=== PATIENT | female | born 1955 | race Caucasian/White ===

== ENCOUNTER 2018-07-01 20:30 | Emergency (ER) | payer MEDICARE, MEDICAID, SELFPAY ==
[2018-07-01 20:31] VITALS: BP 130/71; PULSE 103; RESP 15; TEMP 36.5; O2SAT 96; BMI 37.0
[2018-07-01 21:21] LABS: Mucous, Urine 0 SEEN /hpf (<or=2+); Red Blood Cells-Urine 0 SEEN /hpf (0-5)
[2018-07-01 21:29] LABS: Color, Urine Yellow (Yellow); Glucose, Dipstick Normal (Normal); Ketone-Dipstick Negative (Negative); Leukocyte Esterase-Dipstick 500 /ul (Negative); Nitrite-Dipstick Positive (Negative); Occult Blood-Urine 25 /ul (Negative); Protein-Dipstick 30 mg/dl (Negative); Specific Gravity, Urine 1.025 (1.002-1.030); Urine Bilirubin Dipstick Negative (Negative); Urine Clarity Sl. Cloudy (Clear); Urine Urobilinogen Normal (Normal)
--- NOTE | 2018-07-01 21:43 | CT_ITS ---
STUDY: CT ABDOMEN AND PELVIS WITHOUT CONTRAST REASON FOR EXAM: Female, 62 years old. Right flank pain RADIATION DOSAGE (If Supplied By Facility): CTDIvol = ( 18.24 ) mGy, DLP = ( 979.90 ) mGycm TECHNIQUE: Transaxial images were obtained from the dome of the diaphragm to the symphysis pubis without oral contrast, and without intravenous contrast. Sagittal and coronal images were reconstructed. Individualized dose optimization techniques were used for this CT. COMPARISON: None. FINDINGS: The visualized lung bases are unremarkable. The visualized portions of the heart are within normal limits. Normal liver. Normal gallbladder and extrahepatic biliary system. Normal spleen. Normal pancreas. Normal bilateral adrenal glands. Normal right kidney. Normal left kidney. Prior surgery of the stomach. Prior surgery of the small intestine. Diverticulosis of the colon. The appendix is not visualized. Normal abdominal aorta. Normal inferior vena cava. Normal retroperitoneum. Normal urinary bladder. Normal uterus. Small fatty umbilical hernia. Mild degenerative vertebral changes. CT/Abdomen/Pelvis without Cont IMPRESSION: Small fatty umbilical hernia. Mild colonic diverticulosis. No renal stones. No hydronephrosis. Electronically Signed: Ministerio Brown DO at 23:47 EST Tel [phone], Service support ,
[2018-07-01 21:45] LABS: White Blood Cells >100 SEEN /hpf (0-5)
--- NOTE | 2018-07-01 21:45 | ED.VISSUMM ---
- ER Visit Summary Date of Service: 07/01/18 Chief Complaint: Right flank pain History of Present Illness: The patient is a 62 F worsening right flank pain since yesterday. No injuries. No urinary symptoms. No nausea or vomiting. Normal bowel movements. No fever, chills, sweats. History of hypercholesterolemia and irritable bowel syndrome. No history of kidney stones. States had urinary tract infections in the past however had symptoms. Pain is worse with palpation. Allergies oxycodone causing severe hallucinations. Has tolerated Sumner in the past. Physical Examination: General: Alert and oriented ?3, no acute distress HEENT: Normocephalic, atraumatic. Moist mucosa membranes Neck: supple, nontender. Cardiovascular: Regular rate and rhythm, no murmurs Respiratory: Normal breath sounds, symmetric, no distress Abdomen: Soft, nontender, nondistended Back: Right CVA tenderness, no rash or ecchymosis. Extremities: Nontender, no edema, pulses intact ?4 Neuro: no focal neurological deficits. Test Results: UA leukocytes 500, positive nitrites, white count greater than 100. 3+ bacteria. Urine culture sent. Flank CT fat umbilical hernia, no obstructive uropathy. No inflammatory findings. Emergency Department Course and Treatment: Patient vital signs stable, urine obtained by protocol from nursing results worse noting signs of an section. With her pain right flank I did send for CT, there is no obstructive uropathy. There is no inflammatory findings. Was treated with Sumner. 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 Symptoms were improving in the ED. With tenderness to palpation discussed with patient monitoring for rash or potential shingles. She will be placed on Keflex for treatment of UTI findings. Signs and symptoms discussed to return. Otherwise follow-up with her PCP. OARRS checked Treatment Plan: [] Disposition: Discharge Impression: 1. Right flank pain 2. Urinary tract infection This note was generated with [employer] dictation software. It may contain incorrect words, spelling, and punctuation that were not noted in review of the chart prior to signing ED Disposition - Plan for ED Patient: Disposition: Home or Assisted Living Chief Complaint: Flank Pain Diagnosis: Right flank pain, Urinary tract infection Instructions: ED Flank Pain Uncertain Cause, ED UTI Cystitis Female Prescriptions: Hydrocodone Bitart/Apap 5-325 [Sumner 5MG-325MG] 1 tablet PO Q6H PRN PRN 3 Days #12 tablet PRN Reason: Pain Cephalexin [Keflex] 500 mg PO BID #20 capsule Referrals: Kin Duarte MD [Primary Care Provider] - 3-5 Days Additional Instructions: Take medicines as prescribed. CT with no inflammatory process or kidney stones. Monitor for rash.
[2018-07-01 21:46] LABS: Bacteria 3+ /hpf (None Seen); Squamous Epithelial Cells - UA 0-5 SEEN /hpf (5-10)
[2018-07-01] MEDS: HYDROcodone Bitartrate/Apap 5/325 Tablet PO (21:47)
[2018-07-02] MEDS: Cephalexin 250 MG Capsule 500 MG PO (00:26)
[2018-07-02 00:30] VITALS: BP 148/78; PULSE 100; RESP 14; O2SAT 98
== END 2018-07-02 00:31 | disposition home or self-care (01) ==
PROVIDERS: Emergency Provider Emergency Medicine; Family Provider Family Medicine; PCP Family Medicine
DX: N39.0 Urinary tract infection, site not specified (principal); B96.89 Other specified bacterial agents as the cause of diseases classified elsewhere; K42.9 Umbilical hernia without obstruction or gangrene; K58.9 Irritable bowel syndrome, unspecified; E78.00 Pure hypercholesterolemia, unspecified; Z87.440 Personal history of urinary (tract) infections; Z79.899 Other long term (current) drug therapy
CPT/HCPCS: 74176; 81001; 99283